=== PATIENT | female | born 1965 | race Caucasian/White ===

== ENCOUNTER → 2016-09-28 | Outpatient (CLI) | payer BC ==
[~2016-09-28] MED LIST: BAYER CHEWABLE81 MG PO; ESTROBLEND PO; FISH OIL300 MG PO; LIPITOR40 MG PO; SARAFEM20 M1 PO; TRAMADOL HCL50 M1 PO
--- NOTE | ~2016-09-28 | MR83 ---
[facility] A Service of [facility] RADIOLOGY TEXT RESULTS PATIENT: DANYELL SEXTNO LOCATION: [facility] : 61 UNIT #: [id number] AGE: [address]: Hamzah Otoole MD SEX: F ORDER DR: [id number] [address] [address] [id number] O MR#: [id number] Acc #: [id number] NAME: DANYELL SEXTON : 1965 SEX: F STUDY DATE/TIME: 09/28/2016 11:11 UNIT: [facility] ROOM: STUDY DESCRIPTION: MR Hip Wo Contrast Lt Attending Physician: Hamzah Otoole M.D. Referring Physician: Hamzah Otoole M.D. Ordering Physician: Hamzah Otoole M.D. Primary Care Physician: Kelle Alba M.D. MRI CENTER REPORT This report is preliminary unless electronic signature is present. EXAM MRI of the left hip and pelvis HISTORY 48-year-old female complains of left hip, buttock and thigh pain for 4 months. States injury at work 05/12/2016. Clinical concern for piriformis syndrome. FINDINGS Multiplanar multiecho imaging was performed of the left hip and pelvis utilizing a high field magnet and dedicated protocol. Bone structure and alignment appears normal. No focal marrow edema. Detailed imaging of the hips demonstrates a physiologic amount of joint fluid. Articular cartilage appears maintained. No evidence of labral tear or detachment. The pelvic and proximal thigh musculature appears normal. Normal tendinous attachments about the hips and pelvis. Internal pelvic structures unremarkable. Patient does demonstrate a small amount of free fluid in the pelvis, nonspecific. SI joints and visualized lumbar spine unremarkable. There is a small area of T2 hyperintensity off the posterior aspect of the right L4-5 facet joint may represent a small synovial cyst probably associated with some lower lumbar spine facet arthropathy. IMPRESSION 1. No intrinsic pathology within the hips. 2. Piriformis musculature appears normal. 3. Probable lower lumbar spine facet arthropathy with a small synovial cyst projecting off the posterior aspect of the right L4-5 facet joint. This is of doubtful clinical significance. Dictated by..Fred Cancino M.D. [facility] A Service of [facility] RADIOLOGY TEXT RESULTS PATIENT: DANYELL SEXTON [id number] 61 UNIT #: [id number] AGE: [address]: Hamzah Otoole MD SEX: F ORDER DR: THIS IS AN ELECTRONICALLY VERIFIED REPORT Mac Cancino M.D. at 09/29/2016 2:09 PM MUSA/meredith TD: 09/29/2016 10:46 JOB #: [id number] MRI CENTER REPORT
== END | disposition home or self-care (01) ==
LOC: SMRI 11:39
DX: M25.552 Pain in left hip (principal); M54.30 Sciatica, unspecified side
CPT/HCPCS: 73721

== ENCOUNTER → 2016-12-03 | Outpatient (CLI) | payer BC ==
--- NOTE | ~2016-12-03 | MY11 ---
[facility] A Service of [facility] RADIOLOGY TEXT RESULTS PATIENT: DANYELL SEXTON LOCATION: [facility] : 61 UNIT #: [id number] AGE: [address]: Nevaeh Mcallister APRN SEX: F ORDER DR: [id number] [place] [id number] P MR#: [id number] Acc #: [id number] NAME: DANYELL SEXTON : 1965 SEX: F STUDY DATE/TIME: 12/03/2016 11:53 UNIT: [facility] ROOM: STUDY DESCRIPTION: MY Mammogram Screening Dig Brad Attending Physician: Nevaeh Mcallister A.P.R.N. Ordering Physician: Nevaeh Mcallister A.P.R.N. Primary Care Physician: Kelle Alba M.D. MEDICAL IMAGING REPORT This report is preliminary unless electronic signature is present. EXAM Digital screening mammogram, 12/03/2016, [facility]. HISTORY 51-year-old woman, no risk elevation. Annual screen. COMPARISON STUDIES 10/31/2009, 01/02/2013, 01/04/2014 TECHNIQUE Digital imaging of each breast was completed utilizing screening protocol. Review includes FDA-approved CAD device. FINDINGS Breast parenchyma is moderately dense with residual fibroglandular opacities bilaterally. There is no dominant mass. There are no interval occurring microcalcifications and no suspicious architectural deformity. IMPRESSION Negative mammogram. Annual screening recommended. Patients over the age of 40 are entered into a reminder system with target due date for the next mammogram. A result letter will also be sent to the patient. BIRADS: 1 Negative Dictated by... Neel Singleton M.D. [facility] A Service of [facility] RADIOLOGY TEXT RESULTS PATIENT: DANYELL SEXTON LOCATION: [facility] : 61 UNIT #: [id number] AGE: [address]: Nevaeh Mcallister APRN SEX: F ORDER DR: THIS IS AN ELECTRONICALLY VERIFIED REPORT Neel Singleton M.D. at 12/03/2016 2:50 PM TONIE/lisa TD: 12/03/2016 14:31 JOB #: [id number] MEDICAL IMAGING REPORT Page 1 of 1
== END | disposition home or self-care (01) ==
LOC: SMAM 11:15
DX: Z12.31 Encounter for screening mammogram for malignant neoplasm of breast (principal)
CPT/HCPCS: G0202

== ENCOUNTER → 2016-12-16 | Day surgery (SDC) | payer BC, OTHER ==
--- NOTE | ~2016-12-16 | OR ---
Unit #: [id number] #: [id number] Patient: DANYELL SEXTON [id number] [address] [address] [id number] O MR#: [id number] NAME: DANYELL SEXTON ROOM: Date of Procedure: 12/16/2016 Admission Date: 12/16/2016 Surgeon: Hamzah Otoole M.D. : 1965 Attending Physician: Hamzah Otooel M.D. Primary Care Physician: Kelle Alba M.D. OPERATIVE REPORT PREOPERATIVE DIAGNOSES Back pain and radiculopathy. POSTOPERATIVE DIAGNOSES Back pain and radiculopathy. PROCEDURE PERFORMED Lumbar epidural steroid injection with fluoroscopic guidance for needle localization. INDICATIONS FOR PROCEDURE The patient is a 51-year-old female with back and right greater than left lower extremity pain following a work injury. It is not settle with extensive attempts of conservative treatment. Workup did not demonstrate any significant compressive spinal path, but she does have the symptoms very consistent with radiculitis. Based on history, pathology, symptomatology, and failure of other modalities, plan is for trial of epidural steroids. Risks and benefits of all which have been reviewed. DESCRIPTION OF PROCEDURE The patient was placed in the seated position. Standard monitors were applied. Sterile prep and drape of the lumbar area was performed. The skin then at the L4 level was localized with 1% lidocaine. An 18-gauge [employer] needle was then advanced via loss of resistance technique and fluoroscopic guidance in toward the epidural space. After confirming proper positioning with fluoroscopy and radiographic contrast, 80 mg Depo-Medrol and 4 mL of 0.125% bupivacaine were deposited. The patient tolerated the procedure otherwise well and was discharged to the recovery room in stable condition. Dictated by... Hamzah Otoole M.D. LHP/modl TD: 12/16/2016 23:14 JOB #: [id number] Unit #: [id number] #: [id number] Patient: DANYELL SEXTON OPERATIVE REPORT Page 1 of 1 X Hamzah Otoole MD X PROCEDURE OPERATIVE NOTE
== END | disposition home or self-care (01) ==
LOC: CCSC 08:55
DX: M54.16 Radiculopathy, lumbar region (principal); F17.210 Nicotine dependence, cigarettes, uncomplicated; F32.9 Major depressive disorder, single episode, unspecified
CPT/HCPCS: J1040; J2250

== ENCOUNTER → 2016-12-23 | Day surgery (SDC) | payer BC ==
--- NOTE | ~2016-12-23 | OR ---
Unit #: [id number] #: [id number] Patient: DANYELL SEXTON [id number] [address] [place], [place] [address] [id number] O MR#: [id number] NAME: DANYELL SEXTON ROOM: Date of Procedure: 12/23/2016 Admission Date: 12/23/2016 Surgeon: Hamzah Otoole M.D. : 1965 Attending Physician: Hamzah Otoole M.D. Primary Care Physician: Kelle Alba M.D. OPERATIVE REPORT JOB NOTE: CC: PAIN CENTER PREOPERATIVE DIAGNOSES Radiculopathy and degenerative lumbar disk disease. POSTOPERATIVE DIAGNOSES Radiculopathy and degenerative lumbar disk disease. PROCEDURE PERFORMED Lumbar epidural steroid injection with fluoroscopic guidance for needle localization. INDICATIONS FOR PROCEDURE The patient is a 51-year-old female, who had primary issue with back and right lower extremity pain. There was some back pain as well. She failed to settle with extensive attempts of conservative treatment. Right L4-L5 synovial cyst is the only pathology that it might be causing her symptom complex. The decision was made to give a trial of epidural steroid injection. Initial injection resulted in 3 days of very good improvement in all of the symptoms. Pain then returned toward its baseline. Based on this partial short-length improvement in pathology and symptomatology, we are going to proceed with a second injection today. DESCRIPTION OF PROCEDURE The patient was placed in a seated position. Standard monitors were applied. 2 mg of Versed were given for sedation and anxiolysis, which were adequate. Vital signs remained stable. Sterile prep and drape then of the lumbar area was performed. The skin at the L5-S1 level was localized with 1% lidocaine. An 18-gauge [employer] needle was then advanced via loss of resistance technique and fluoroscopic guidance in toward the epidural space. The patient did not complain of pain or paresthesia during needle advancement. After confirming proper positioning with fluoroscopy and radiographic contrast, 80 mg of Depo-Medrol and 4 mL of 0.125% bupivacaine were deposited. The patient tolerated the procedure otherwise well and was discharged to the recovery room in stable condition. Dictated by... Hamzah Otoole M.D. LHP/modl Unit #: [id number] #: [id number] Patient: DANYELL SEXTON TD: 12/23/2016 23:39 JOB #: [id number] OPERATIVE REPORT Page 1 of 1 X Hamzah Otoole MD X PROCEDURE OPERATIVE NOTE
== END | disposition home or self-care (01) ==
LOC: CCSC 09:36
DX: M51.16 Intervertebral disc disorders with radiculopathy, lumbar region (principal); F32.9 Major depressive disorder, single episode, unspecified; F17.210 Nicotine dependence, cigarettes, uncomplicated; Z88.0 Allergy status to penicillin; Z79.82 Long term (current) use of aspirin; Z79.891 Long term (current) use of opiate analgesic; Z79.899 Other long term (current) drug therapy
CPT/HCPCS: J1040; J2250